=== PATIENT | male | born 2000 | race African-American/Black ===

== ENCOUNTER 2025-08-28 13:44 | Emergency (ER) | payer OTHER ==
[~2025-08-28] VITALS: Ht 172.7 cm; Wt 81.9 kg
[2025-08-28] MEDS: SILVER SULFADIAZINE 1 % TOPICAL CREAM 50GM TOP ONE (14:37)
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
[2025-08-28 15:06] VITALS: BP 126/92; PULSE 70; RESP 18; TEMP 98.2; O2SAT 96
== END 2025-08-28 15:11 | disposition home or self-care (01) ==
LOC: ER 13:44
DX: T23.261A Burn of second degree of back of right hand, initial encounter (principal); Z79.899 Other long term (current) drug therapy; X58.XXXA Exposure to other specified factors, initial encounter; Y93.89 Activity, other specified; Y92.89 Other specified places as the place of occurrence of the external cause; Y99.8 Other external cause status
CPT/HCPCS: 16020